=== PATIENT | female | born 1960 ===

== ENCOUNTER 2025-01-07 07:50 | Day surgery (SDC) | payer OTHER ==
[2024-12-30 10:20] LABS: HEMATOCRIT 39.4 % (36.0-45.00); HEMOGLOBIN 13.2 g/dL (12.0-15.00); MEAN CELL VOLUME 90.2 fL (80.00-100.00); MEAN CORPUSCULAR HEMOGLOBIN 30.3 pg (27.00-32.0); MEAN CORPUSCULAR HGB CONC 33.6 g/dl (32.0-36.0); PLATELET COUNT 306 K/uL (150-450); RED BLOOD COUNT 4.36 M/uL (4.00-6.00); RED CELL DISTRIBUTION WIDTH 13.8 % (11.5-14.5)
[2024-12-30 10:42] LABS: URINE APPEARANCE Clear; URINE BILIRRUBIN Negative (NEGATIVE); URINE BLOOD Moderate; URINE COLOR Yellow; URINE GLUCOSE Negative (NEGATIVE); URINE KETONE Negative (NEGATIVE); URINE LEUKOCYTE Small; URINE NITRATE Negative; URINE PROTEIN Negative (NEGATIVE); URINE UROBILINOGEN 0.2 E.U./dl
[2024-12-30 10:44] LABS: URINE BACTERIA 156.6 uL (0.0-1933); URINE EPITHELIAL CELLS 4.5 uL (0.0-38.8); URINE RBC 207.3 uL (0.0-20.8); URINE WBC 45.5 uL (0.0-23.2)
[2024-12-30 10:49] VITALS: BP 148/79
[2024-12-30 10:54] LABS: INR 0.99; PARTIAL THROMBOPLASTIN TIME 28.6 SECONDS (22.0-34.0); PROTHROMBIN TIME 10.8 SECONDS (9.0-11.5)
[2024-12-30 12:12] LABS: ALBUMIN 3.9 gm/dL (3.4-5.0); BILIRUBIN TOTAL 0.54 mg/dL (0.3-1.2); CALCIUM 9.3 mg/dL (8.5-10.1); CREATININE SERUM 0.52 mg/dL (0.55-1.02); GFR 117.98; GLOBULINA 3.5 G/DL (2.4-3.5); POTASSIUM 3.83 mEq/L (3.5-5.1); TOTAL PROTEIN 7.4 gm/dL (6.4-8.2); TSH 3.16 uIU/mL (0.358-3.74)
[~2025-01-07] VITALS: Ht 162.6 cm; Wt 59.9 kg
[~2025-01-07 07:50] MED LIST: AMLODIPINE-OLM1 EAC2; COZAAR25 MG PO; LEVO-T25 MCG PO; LEVO-T50 MCG PO; LIPITOR20 MG; VITAMIN D3
[2025-01-07] MEDS ORDERED: POVIDONE-IODINE 118 ML BOTT TOP ONE (14:26)
[2025-01-07] MEDS ORDERED: CEFOXITIN SODIUM 2,000 MG VIAL IV ONE (14:26)
[2025-01-07] MEDS ORDERED: MORPHINE SULFATE 4 MG/ML VIAL IV PRN (16:00)
[2025-01-07] MEDS ORDERED: PROMETHAZINE HCL 50 MG/ML AMPUL IM ONE (16:00)
[2025-01-07] MEDS ORDERED: NAPR500T14 PO (16:15)
[2025-01-07] MEDS ORDERED: DOXYCYCLINE HY100 M2 PO (16:15)
[2025-01-07] MEDS ORDERED: MORPHINE SULFATE 2 MG/ML CARTRIDGE IV ONE (17:20)
[2025-01-07] MEDS ORDERED: ENALAPRILAT DIHYDRATE 1.25 MG/ML VIAL IV ONE ×3 (20:25→20:49)
== END 2025-01-07 21:30 | disposition home or self-care (01) ==
LOC: CIR.AMB 07:50
PROVIDERS: ATTEND Obstetrics & Gynecology
DX: D25.0 Submucous leiomyoma of uterus (principal); N84.0 Polyp of corpus uteri; N95.0 Postmenopausal bleeding; I10 Essential (primary) hypertension; E03.8 Other specified hypothyroidism